=== PATIENT | male | born 1965 | race Caucasian/White ===

== ENCOUNTER 2023-01-08 16:21 | Emergency (ER) | payer MEDICARE, MEDICAID ==
[~2023-01-08] VITALS: Ht 172.7 cm; Wt 90.0 kg
[2023-01-08 17:11] VITALS: BP 140/85
[2023-01-08] MEDS ORDERED: HYDROcodone/acetaminophen 5mg/325mg tablet PO ONE (18:50)
[2023-01-08] MEDS ORDERED: ondansetron 4mg rapidly disintigrating tab PO ONE (18:50)
[2023-01-08] MEDS ORDERED: ketorolac trometh inj. 60 MG/2 ML VIAL IM ONE (18:55)
[2023-01-08 18:59] LABS: CLARITY,URINE CLEAR (Clear); COLOR,URINE YELLOW (Yellow); GLUCOSE, URINE NEGATIVE (Neg); KETONES,URINE NEGATIVE (Neg); LEUKOCYTE ESTERASE ,URINE NEGATIVE (Neg); NITRITES, URINE NEGATIVE (Neg); OCCULT BLOOD,URINE NEGATIVE (Neg); PROTEIN,URINE NEGATIVE (Neg)
[2023-01-08] MEDS ORDERED: ketorolac trometh. 30mg/ml inj. IM ONE (19:00)
[2023-01-08 19:02] LABS: UA COLLECTION TYPE CLN CATCH MIDSTREAM
== END 2023-01-08 19:36 | disposition home or self-care (01) ==
LOC: ER 16:22
DX: R10.32 Left lower quadrant pain (principal)
CPT/HCPCS: 81003; 96372; 99284; J1885